=== PATIENT | female | born 1985 | race Caucasian/White ===

== ENCOUNTER 2018-11-07 06:26 | Inpatient (IN) ==
[2018-11-07] MEDS ORDERED: REGLAN PO ONE (06:49)
[2018-11-07] MEDS ORDERED: PEPCID IV PRN (06:49)
[2018-11-07] MEDS ORDERED: KEFZOL 1 GM/D5W 1 GM/50 ML IVPB IV PRN (06:49)
[2018-11-07] MEDS ORDERED: STADOL IV PRN (06:49)
[2018-11-07] MEDS ORDERED: TYLENOL PO PRN (06:49)
[2018-11-07] MEDS ORDERED: ZOFRAN IV PRN (06:49)
[2018-11-07] MEDS ORDERED: PEPCID PO ONE (06:49)
[2018-11-07] MEDS ORDERED: PEPCID PO PRN (06:49)
[2018-11-07] MEDS ORDERED: PITOCIN 30 UNITS/NS 30 UNIT/500 ML IV.SOLN IV SCH ×2 (07:00→13:30)
[2018-11-07] MEDS ORDERED: SODIUM CHLORIDE 0.9% INJ SCH (07:00)
[2018-11-07 07:02] LABS: URINE SOURCE VOIDED
[2018-11-07 07:06] LABS: BILIRUBIN URINE NEGATIVE (NEGATIVE); BLOOD URINE 4+ (NEGATIVE); CLARITY VERY CLOUDY (CLEAR); COLOR YELLOW; KETONE URINE NEGATIVE (NEGATIVE); LEUKOCYTES URINE 2+ (NEGATIVE); NITRITE URINE POSITIVE (NEGATIVE); PROTEIN URINE 2+(100 mg/dL) mg/dL (NEGATIVE); SP GRAVITY URINE 1.005; UROBILINOGEN URINE NORMAL
[2018-11-07] MEDS ORDERED: XYLOCAINE-MPF 1% INJ ONE (07:52)
[2018-11-07] MEDS ORDERED: MINERAL OIL TOP ONE (07:52)
[2018-11-07] MEDS ORDERED: FENTANYL-BUPIV-NS 2 MCG-0.1% 200 ML EPIDURAL SCH (08:00)
[2018-11-07] MEDS ORDERED: NAROPIN 0.2% INJ ONE (08:00)
[2018-11-07 08:03] LABS: UR AMPHETAMINES QUAL NONE DETECTED (NONE DETECT); UR BARBITUATES QUAL NONE DETECTED (NONE DETECT); UR BENZODIAZEPIN QUAL NONE DETECTED (NONE DETECT); UR CANNABINOIDS QUAL NONE DETECTED (NONE DETECT); UR COCAINE QUAL NONE DETECTED (NONE DETECT); UR METHADONE QUAL NONE DETECTED (NONE DETECT); UR METHAMPHETAMINE QUAL NONE DETECTED (NONE DETECT); UR OPIATES QUAL NONE DETECTED (NONE DETECT); UR OXYCODONE QUAL NONE DETECTED (NONE DETECT); UR PCP QUAL NONE DETECTED (NONE DETECT); UR PROPOXYPHENE QUAL NONE DETECTED (NONE DETECT); UR TCA QUAL NONE DETECTED (NONE DETECT)
[2018-11-07 08:07] LABS: BASO# 0.02 X1000 (0.0-0.2); BASO% 0.1 % (0.0-0.8); EOS# 0.19 X1000 (0.0-0.7); EOS% 1.3 % (0.0-10.0); HEMOGLOBIN 11.4 g/dL (12.0-16.0); IMM GRAN# 0.05 X1000 (0.0-0.04); IMM GRAN% 0.3 % (0.0-0.5); LYMPH# 2.82 X1000 (1.2-3.4); LYMPH% 19.6 % (20.5-51.1); MCH 31.3 PG (27-31); MCHC 33.5 g/dL (33-37); MCV 93.4 FL (81-99); MONO# 1.36 X1000 (0.11-0.59); MONO% 9.5 % (1.7-9.3); NEUT# 9.94 X1000 (1.4-6.5); NEUT% 69.2 % (42.2-75.2); PLT 352 X1000 (130-400); RBC 3.64 XMIL (4.2-5.4); RDW 13.9 % (11.5-14.5); WBC 14.38 X1000 (4.8-10.8)
[2018-11-07] MEDS: LR 1,000 ML IV SCH ×2 (08:07→10:40)
--- NOTE | 2018-11-07 08:40 | HISTORY AND PHYSICAL ---
CHIEF COMPLAINT: Leakage of fluid. HISTORY OF PRESENT ILLNESS: The patient is a 33-year-old G 5 P 1-1-3-1. She is 39 and 5 dated by a 26 week ultrasound. She presented to Labor and Delivery with a complaint of contractions and rupture of membranes. She states that her water broke around 5 a.m. this morning, and she had some meconium stained fluid. 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 REVIEW OF SYSTEMS: The patient denies any fever, chills, chest pain, shortness of breath, nausea, vomiting, diarrhea, constipation, or rectal bleeding. PAST MEDICAL HISTORY: As above. PAST SURGICAL HISTORY: Ankle surgery and knee surgery. MEDICATIONS: NovoLog 5 units with each meal, Lantus 8 units at bedtime, vitamins. ALLERGIES: No known drug allergies. FAMILY HISTORY: Noncontributory. SOCIAL HISTORY: She is single. She is a smoker of tobacco. She denies any alcohol or illegal drug use, and she does not have custody of her other child. PHYSICAL EXAMINATION: VITAL SIGNS: Her weight is 133.8 kg. She is 5 feet 4 inches. Blood pressure 145/72, temperature 97.3, heart rate 91. GENERAL: Awake, alert and oriented x3. Slight distress due to contraction pain. CARDIOVASCULAR: Regular rate and rhythm. No gallops, murmurs, or rubs. LUNGS: Clear to auscultation bilaterally. No wheezes, rales, or rhonchi. ABDOMEN: Positive bowel sounds, nontender, gravid. EXTREMITIES: No cyanosis, clubbing, or edema. STERILE VAGINAL EXAM: Cervix is 4 cm dilated, 70% effaced, and the is cephalic by palpation and at minus 2 station. Meconium was noted. An IUPC and FSE was placed at that time. LABORATORY: CBC is pending. ASSESSMENT AND PLAN: 1. Intrauterine at 39 and 5 by a 26 week ultrasound. 2. Gestational diabetes. 3. Elevated blood pressure. 4. Late care. 5. History of Chlamydia with a negative [id number]. 6. 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 PLAN: 1. Admit to Labor and Delivery. 2. IV hydration. 3. Glucose monitoring. 4. Epidural upon request. 5. Pitocin as needed. 6. Blood pressure monitoring. cc: Sravan Torres III, MD
--- NOTE | 2018-11-07 11:11 | OB/GYN PROGRESS NOTE ---
Progress Note OB - . OB Progress Note: Vital Signs - 24 hr 11/07/18 07:05 11/07/18 10:53 Temperature 97.3 F L 97.0 F L Pulse Rate 81 95 H Respiratory Rate 20 18 Blood Pressure 142/82 122/63 O2 Sat by Pulse Oximetry 99 99 Laboratory Results - last 24 hr 11/07/18 11/07/18 11/07/18 07:01 07:01 07:45 WBC RBC Hgb Hct MCV MCH MCHC RDW Std Deviation Plt Count MPV Immature Gran % (Auto) Neut % (Auto) Lymph % (Auto) [place] % (Auto) Eos % (Auto) Baso % (Auto) Immature Gran # (Auto) Neut # (Auto) Lymph # (Auto) [place] # (Auto) Eos # (Auto) Baso # (Auto) POC Glucose Urine Source VOIDED Urine Color YELLOW Urine Clarity VERY CLOUDY A Urine pH 7.0 Ur Specific [place] 1.005 Urine Protein 2+(100 mg/dL) A Urine Ketones NEGATIVE Urine Blood 4+ Urine Nitrite POSITIVE A Urine Bilirubin NEGATIVE Urine Urobilinogen NORMAL Urine WBC 2+ A Urine Glucose 1+(100 mg/dL) A Urine Opiates Screen NONE DETECTED Ur Oxycodone Screen NONE DETECTED Urine Methadone Screen NONE DETECTED U Propoxyphene Qual NONE DETECTED Ur Barbituates Screen NONE DETECTED Ur Tricyclics Screen NONE DETECTED Ur Phencyclidine Scrn NONE DETECTED Ur Amphetamines Screen NONE DETECTED U Methamphetamines Scrn NONE DETECTED U Benzodiazepines Scrn NONE DETECTED Urine Cocaine Screen NONE DETECTED U Cannabinoids Screen NONE DETECTED RPR NON-REACTIVE 11/07/18 11/07/18 07:45 10:26 WBC 14.38 H RBC 3.64 L Hgb 11.4 L Hct 34.0 L MCV 93.4 MCH 31.3 H MCHC 33.5 RDW Std Deviation 13.9 Plt Count 352 MPV 10.0 Immature Gran % (Auto) 0.3 Neut % (Auto) 69.2 Lymph % (Auto) 19.6 L [place] % (Auto) 9.5 H Eos % (Auto) 1.3 Baso % (Auto) 0.1 Immature Gran # (Auto) 0.05 H Neut # (Auto) 9.94 H Lymph # (Auto) 2.82 [place] # (Auto) 1.36 H Eos # (Auto) 0.19 Baso # (Auto) 0.02 POC Glucose 150 H Urine Source Urine Color Urine Clarity Urine pH Ur Specific [place] Urine Protein Urine Ketones Urine Blood Urine Nitrite Urine Bilirubin Urine Urobilinogen Urine WBC Urine Glucose Urine Opiates Screen Ur Oxycodone Screen Urine Methadone Screen U Propoxyphene Qual Ur Barbituates Screen Ur Tricyclics Screen Ur Phencyclidine Scrn Ur Amphetamines Screen U Methamphetamines Scrn U Benzodiazepines Scrn Urine Cocaine Screen U Cannabinoids Screen RPR The pt is comfortable with her epidural. She is felling some pressure Pitocin at 6 O: SVE 9/100/-1 FHTs 140s TOCO ctxs q 2-3 min Cont JOSE
--- NOTE | 2018-11-07 12:08 | OB/GYN PROGRESS NOTE ---
Progress Note OB - . OB Progress Note: Vital Signs - 24 hr 11/07/18 07:05 11/07/18 10:53 Temperature 97.3 F L 97.0 F L Pulse Rate 81 95 H Respiratory Rate 20 18 Blood Pressure 142/82 122/63 O2 Sat by Pulse Oximetry 99 99 Laboratory Results - last 24 hr 11/07/18 11/07/18 11/07/18 07:01 07:01 07:45 WBC RBC Hgb Hct MCV MCH MCHC RDW Std Deviation Plt Count MPV Immature Gran % (Auto) Neut % (Auto) Lymph % (Auto) [place] % (Auto) Eos % (Auto) Baso % (Auto) Immature Gran # (Auto) Neut # (Auto) Lymph # (Auto) [place] # (Auto) Eos # (Auto) Baso # (Auto) POC Glucose Urine Source VOIDED Urine Color YELLOW Urine Clarity VERY CLOUDY A Urine pH 7.0 Ur Specific [place] 1.005 Urine Protein 2+(100 mg/dL) A Urine Ketones NEGATIVE Urine Blood 4+ Urine Nitrite POSITIVE A Urine Bilirubin NEGATIVE Urine Urobilinogen NORMAL Urine WBC 2+ A Urine Glucose 1+(100 mg/dL) A Urine Opiates Screen NONE DETECTED Ur Oxycodone Screen NONE DETECTED Urine Methadone Screen NONE DETECTED U Propoxyphene Qual NONE DETECTED Ur Barbituates Screen NONE DETECTED Ur Tricyclics Screen NONE DETECTED Ur Phencyclidine Scrn NONE DETECTED Ur Amphetamines Screen NONE DETECTED U Methamphetamines Scrn NONE DETECTED U Benzodiazepines Scrn NONE DETECTED Urine Cocaine Screen NONE DETECTED U Cannabinoids Screen NONE DETECTED RPR NON-REACTIVE 11/07/18 11/07/18 07:45 10:26 WBC 14.38 H RBC 3.64 L Hgb 11.4 L Hct 34.0 L MCV 93.4 MCH 31.3 H MCHC 33.5 RDW Std Deviation 13.9 Plt Count 352 MPV 10.0 Immature Gran % (Auto) 0.3 Neut % (Auto) 69.2 Lymph % (Auto) 19.6 L [place] % (Auto) 9.5 H Eos % (Auto) 1.3 Baso % (Auto) 0.1 Immature Gran # (Auto) 0.05 H Neut # (Auto) 9.94 H Lymph # (Auto) 2.82 [place] # (Auto) 1.36 H Eos # (Auto) 0.19 Baso # (Auto) 0.02 POC Glucose 150 H Urine Source Urine Color Urine Clarity Urine pH Ur Specific [place] Urine Protein Urine Ketones Urine Blood Urine Nitrite Urine Bilirubin Urine Urobilinogen Urine WBC Urine Glucose Urine Opiates Screen Ur Oxycodone Screen Urine Methadone Screen U Propoxyphene Qual Ur Barbituates Screen Ur Tricyclics Screen Ur Phencyclidine Scrn Ur Amphetamines Screen U Methamphetamines Scrn U Benzodiazepines Scrn Urine Cocaine Screen U Cannabinoids Screen RPR Pt feeling alot more pressure O: 10/100/0-+1 FHTs 140s TOCO: ctxs q 2-3 min Will start pushing
[2018-11-07] MEDS ORDERED: MINERAL OIL PO PRN (13:29)
[2018-11-07] MEDS ORDERED: M-M-R II VACCINE SUBQ ONE (13:29)
[2018-11-07] MEDS ORDERED: ATARAX PO PRN (13:29)
[2018-11-07] MEDS ORDERED: CYTOTEC PO PRN (13:29)
[2018-11-07] MEDS ORDERED: BOOSTRIX VACCINE IM ONE (13:29)
[2018-11-07] MEDS ORDERED: BENADRYL IV PRN (13:29)
[2018-11-07] MEDS ORDERED: XYLOCAINE-MPF 1% INJ PRN (13:29)
[2018-11-07] MEDS ORDERED: PITOCIN IM PRN (13:29)
[2018-11-07] MEDS ORDERED: BENADRYL PO PRN (13:29)
[2018-11-07] MEDS ORDERED: PERI MEDS (DERMOPLAST/NUPERCAINAL/TUCKS) MISC PRN (13:29)
[2018-11-07] MEDS ORDERED: HYDROXYZINE IM PRN (13:29)
[2018-11-07] MEDS ORDERED: AMBIEN PO PRN (13:29)
[2018-11-07] MEDS ORDERED: PITOCIN 20 UNITS/NS 20 UNITS/1,000 ML IV.SOLN IV SCH (13:30)
--- NOTE | 2018-11-07 14:19 | OPERATIVE NOTE ---
PROCEDURE DATE : 11/07/2018 PREOPERATIVE DIAGNOSIS: 1. Intrauterine at 39 and 5. 2. A2 gestational diabetes mellitus 3. Morbid obesity. 4. History of Chlamydia with negative [id number]. 5. History of methamphetamine use 1 year ago. POSTOPERATIVE DIAGNOSIS: 1. Intrauterine at 39 and 5. 2. A2 gestational diabetes mellitus 3. Morbid obesity. 4. History of Chlamydia with negative [id number]. 5. History of methamphetamine use 1 year ago. 6. Delivered. PROCEDURE: Normal spontaneous vaginal delivery. ATTENDING: Birgit Adam MD. ANESTHESIA: Epidural. FINDINGS: Viable male infant delivered at 12:41, weight 9 pounds 2 ounces, Apgars 2, 5, and 9. COMPLICATIONS: Shoulder dystocia requiring suprapubic pressure, Marsh's maneuver, and delivery of a posterior arm. ESTIMATED BLOOD LOSS: 350 mL. SPECIMENS: Placenta to Pathology. DESCRIPTION OF THE PROCEDURE: The patient was complete complete and +1 with maternal effort. The 's head was delivered without difficulty. We obtained some difficulty with delivery of the 's shoulders. Alex was performed in addition to suprapubic pressure, Marsh's maneuver, and finally delivery of the posterior arm. The remainder of the was delivered at 12:41 and the infant was handed off to the waiting Nursery staff. Cord blood was sent. The placenta delivered spontaneously and there was a 3-vessel cord. The vagina was examined. There was a second-degree perineal laceration that was repaired with a 2-0 Vicryl in the usual fashion. The baby was taken to the Nursery for further assessment, and mom stable in her room. cc: Sravan Torres III, MD
[2018-11-07] MEDS: MOTRIN PO PRN (17:52)
[2018-11-07] MEDS: PERICOLACE PO SCH (21:29)
[2018-11-07] MEDS: NORCO-5 PO PRN (22:43)
[2018-11-08] MEDS: MOTRIN PO PRN ×3 (02:29→21:27)
[2018-11-08 07:29] LABS: BASO# 0.02 X1000 (0.0-0.2); BASO% 0.1 % (0.0-0.8); EOS# 0.15 X1000 (0.0-0.7); EOS% 0.9 % (0.0-10.0); HEMATOCRIT 32.4 % (37.0-47.0); HEMOGLOBIN 10.7 g/dL (12.0-16.0); IMM GRAN# 0.06 X1000 (0.0-0.04); IMM GRAN% 0.4 % (0.0-0.5); LYMPH# 3.37 X1000 (1.2-3.4); MCH 31.2 PG (27-31); MCV 94.5 FL (81-99); MONO# 1.49 X1000 (0.11-0.59); MONO% 8.8 % (1.7-9.3); MPV 10.4 FL (7.4-10.4); NEUT# 11.77 X1000 (1.4-6.5); NEUT% 69.8 % (42.2-75.2); PLT 360 X1000 (130-400); RBC 3.43 XMIL (4.2-5.4); WBC 16.86 X1000 (4.8-10.8)
--- NOTE | 2018-11-08 09:58 | OB/GYN PROGRESS NOTE ---
Progress Note OB - . OB Progress Note: Vital Signs - 24 hr 11/07/18 10:53 11/07/18 13:00 11/07/18 13:05 Temperature 97.0 F L 97.2 F L 97.3 F L Pulse Rate 95 H 93 H Respiratory Rate 18 16 Blood Pressure 122/63 126/74 Blood Pressure [Right Arm] 126/74 O2 Sat by Pulse Oximetry 99 99 11/07/18 13:10 11/07/18 13:20 11/07/18 13:30 Temperature Pulse Rate 86 90 85 Respiratory Rate 16 18 18 Blood Pressure Blood Pressure [Right Arm] 123/61 129/63 122/61 O2 Sat by Pulse Oximetry 99 99 99 11/07/18 13:39 11/07/18 13:50 11/07/18 14:00 Temperature Pulse Rate 83 82 80 Respiratory Rate 20 16 18 Blood Pressure Blood Pressure [Right Arm] 120/56 122/68 120/56 O2 Sat by Pulse Oximetry 99 99 99 11/07/18 15:15 11/07/18 21:30 11/07/18 23:45 Temperature 97.0 F L 97.1 F L 96.8 F L Pulse Rate 82 96 H 100 H Respiratory Rate 16 20 20 Blood Pressure 156/83 141/83 150/78 Blood Pressure [Right Arm] O2 Sat by Pulse Oximetry 99 11/08/18 04:20 11/08/18 07:49 Temperature 96.9 F L 97.5 F L Pulse Rate 100 H 91 H Respiratory Rate 18 20 Blood Pressure 135/68 156/68 Blood Pressure [Right Arm] O2 Sat by Pulse Oximetry 99 Laboratory Results - last 24 hr 11/07/18 11/08/18 11/08/18 10:26 06:00 06:00 WBC 16.86 H RBC 3.43 L Hgb 10.7 L Hct 32.4 L MCV 94.5 MCH 31.2 H MCHC 33.0 RDW Std Deviation 14.0 Plt Count 360 MPV 10.4 Immature Gran % (Auto) 0.4 Neut % (Auto) 69.8 Lymph % (Auto) 20.0 L [place] % (Auto) 8.8 Eos % (Auto) 0.9 Baso % (Auto) 0.1 Immature Gran # (Auto) 0.06 H Neut # (Auto) 11.77 H Lymph # (Auto) 3.37 [place] # (Auto) 1.49 H Eos # (Auto) 0.15 Baso # (Auto) 0.02 Glucose 134 H POC Glucose 150 H PPD 1 . pt has no complaints. Baby is in the NSY. Fundus is firm and nontender. No calf tenderness. FBS 136 and 2hr PP 189. A/P: Pt is eating constantly. Blood sugars are elevated. Will need to restart insulin. Probable discharge tomorrow.
[2018-11-08] MEDS: HUMALOG (PARKWAY) SUBQ SCH ×2 (11:20→16:33)
[2018-11-08] MEDS: NORCO-5 PO PRN ×3 (11:21→21:26)
[2018-11-08 13:06] LABS: HEMOGLOBIN A1C 6.6 % (4.8-6.0)
[2018-11-08] MEDS ORDERED: MACROBID PO ONE (16:33)
[2018-11-08] MEDS: MACROBID PO SCH (16:46)
[2018-11-08] MEDS ORDERED: LANTUS INSULIN SUBQ SCH (21:00)
[2018-11-08] MEDS: PERICOLACE PO SCH (21:26)
[2018-11-09] MEDS: MACROBID PO SCH ×2 (00:12→09:43)
[2018-11-09] MEDS: NORCO-5 PO PRN (04:47)
[2018-11-09 07:32] VITALS: BP 155/78
[2018-11-09] MEDS: MOTRIN PO PRN (07:38)
[2018-11-09] MEDS: HUMALOG (PARKWAY) SUBQ SCH ×2 (07:39→13:01)
--- NOTE | 2018-11-10 00:11 | DISCHARGE SUMMARY ---
ADMISSION DATE: 11/07/2018 DISCHARGE DATE: 11/09/2018 ADMISSION DIAGNOSES: Intrauterine 39-5/7 weeks with spontaneous rupture of membranes in active labor. FINAL DIAGNOSIS: 1. Intrauterine 39-5/7 weeks with spontaneous rupture of membranes in active labor. 2. Spontaneous vaginal delivery male infant 9 pounds 2 ounces with Apgars of 2, 5 and 9. PROCEDURES: Spontaneous vaginal delivery. BRIEF HISTORY: The patient is a 33-year-old white female G5, P1, A3. She is 39-5/7 weeks by a 26 week ultrasound scan presents to labor and delivery with complaints of contractions and spontaneous rupture of membranes. She had some meconium stained fluid. care complicated by late care gestational diabetes requiring insulin, obesity, history of Chlamydia and history of methamphetamine use but reports no use in 1 year. REVIEW OF SYSTEMS: Noncontributory. MEDICAL HISTORY: Significant for diabetes of and obesity. PAST SURGICAL HISTORY: Ankle surgery and knee surgery. MEDICATIONS: NovoLog 5 units with each meal, Lantus 8 units at bedtime and vitamins. ALLERGIES: No known drug allergies. FAMILY HISTORY: Noncontributory. SOCIAL HISTORY: Single, smoker. PHYSICAL EXAM: Weight is 133 kg, height 5 feet 4, blood pressure 145/72, temperature 97.3, heart rate 91. General: Alert and oriented x3. Distress due to contraction pain. CV: Regular rate and rhythm. Lungs: Clear. Abdomen: Gravid, nontender. Extremities: No clubbing, cyanosis or edema noted. Patient noted to have on cervical exam she was dilated 4 cm, 70% effaced, -2 station. ASSESSMENT AND PLAN: Intrauterine 39 and 5/7 weeks with spontaneous rupture of membranes and early labor. The patient to be admitted, IV hydration, glucose monitoring, epidural upon request and Pitocin as needed. HOSPITAL COURSE: The patient had spontaneous vaginal delivery of a male 9 pounds 2 ounces with Apgars of 2, 5 and 9 at 12:41 p.m. on 11/07/2018. The patient had shoulder dystocia and difficulty delivery which required Alex and Marsh maneuver. The patient's hospital course, glucose monitoring was begun and insulin was restarted. The patient's hemoglobin was low at 10.7 and hematocrit was low at 32.4 and her sugars range from 136 to 120 and felt on day #2 that she had stable vital signs, was afebrile and felt that she could be discharged home at this time. DISCHARGE PLANS: The patient will be discharged home and follow up in 2 weeks. She was instructed on pelvic rest for 6 weeks and was also instructed to continue with her normal insulin regimen and continue monitoring her blood sugars. DISCHARGE MEDICATIONS: Motrin 800 mg, Colace 100 mg and iron sulfate 325 mg. cc: Sravan Torres III, MD
== END 2018-11-09 13:15 | disposition home or self-care (01) | DRG 807 ==
LOC: P.NBC 06:26 → P.LD 06:29
PROVIDERS: ADMIT Obstetrics & Gynecology; ATTEND Obstetrics & Gynecology